=== PATIENT | female | born 1970 | race Caucasian/White ===

== ENCOUNTER 2017-08-06 20:18 | Emergency (ER) | payer MEDICAID ==
[2017-08-06 20:18] VITALS: BMI 31.6
[2017-08-06 20:41] VITALS: BP 100/74; PULSE 96; RESP 20; TEMP 98.3; O2SAT 94
--- NOTE | 2017-08-06 21:13 | ED PDOC ---
Arrival/HPI - General Historian: Patient - History of Present Illness Time/Duration: < week Symptom Onset: Sudden Symptom Course: Intermittent Quality: Fullness Severity Level: 4 Activities at Onset: Rest Context: Home <JUDI MILLER - Last Filed: 08/06/17 23:06> <Rhea Betancur - Last Filed: 08/06/17 23:18> - General Chief Complaint: Shortness Of Breath Time Seen by Provider: 08/06/17 20:19 - History of Present Illness Narrative History of Present Illness (Text): 08/06/17 21:04 46yo F PMH DM2, asthma, anxiety, iron-deficient anemia who presents with shortness of breath and a runny nose x3 days, that she states she gets often when she's sick with a common cold. The sob is not associated with exertion and states it gets better with the use of her nebulizer and motrin at home. Pt also complaining of fevers, but denies cp, palpitations, cough, LE swelling, n/v/d. Pt also denies recent travel or sick contacts at home. pt uses CPAP to sleep at night. pt states she was at [facility] last for "stroke" symptoms, and is seeing Dr. Seb Rios (neurology). Pt also seeing Dr. Yoseph Devries ( cardiology) for a hx of cardiac treatment in [place] (pt was in ICU due to syncope ); pt underwent stress test but states she needs a cath. PMD: Dr. Jocy Knowles. (JUDI MILLER) Past Medical History - Provider Review Nursing Documentation Reviewed: Yes - Past History Past History: Non-Contributing - Infectious Disease Hx of Infectious Diseases: None - Cardiac Hx Cardiac Disorders: Yes Hx Hypertension: Yes - Pulmonary Hx Asthma: Yes - Neurological Hx Dizziness: Yes - HEENT Hx HEENT Disorder: No - Renal Hx Renal Disorder: No - Endocrine/Metabolic Hx Diabetes Mellitus Type 2: Yes - Hematological/Oncological Hx Blood Disorders: No - Integumentary Hx Dermatological Disorder: No - Musculoskeletal/Rheumatological Hx Falls: No - Gastrointestinal Hx Gastrointestinal Disorders: No - Genitourinary/Gynecological Hx Genitourinary Disorders: No - Psychiatric Hx Psychophysiologic Disorder: No Hx Substance Use: No - Surgical History Hx Cholecystectomy: Yes - Anesthesia Hx Anesthesia: Yes Hx Anesthesia Reactions: No Hx Malignant Hyperthermia: No <JUDI MILLER - Last Filed: 08/06/17 23:06> Family/Social History - Physician Review Nursing Documentation Reviewed: Yes Family/Social History: No Known Family HX Smoking Status: Never Smoked Hx Alcohol Use: No Hx Substance Use: No <JUDI MILLER - Last Filed: 08/06/17 23:06> Allergies/Home Meds <JUDI MILLER - Last Filed: 08/06/17 23:06> <Rhea Betancur - Last Filed: 08/06/17 23:18> Allergies/Adverse Reactions: Allergies No Known Allergies Allergy (Verified 08/06/17 20:35) Home Medications: Home Meds Medication Instructions Recorded Confirmed Metformin ER [Glucophage XR] 500 mg PO DAILY 12/08/15 08/06/17 Aspirin [Aspirin Chewable] 81 mg PO DAILY 08/06/17 08/06/17 Review of Systems - Physician Review All systems were reviewed & negative as marked: Yes - Review of Systems Constitutional: Fevers. absent: Fatigue Eyes: Normal ENT: Rhinorrhea. absent: Hearing Changes Respiratory: SOB. absent: Cough Cardiovascular: Normal. absent: Chest Pain, Palpitations, Edema, Syncope Gastrointestinal: Normal. absent: Abdominal Pain, Nausea, Vomiting <JUDI MILLER - Last Filed: 08/06/17 23:06> Physical Exam Vital Signs Reviewed: Yes Appearance: Positive for: Well-Appearing Pain Distress: None Mental Status: Positive for: Alert and Oriented X 3 - Systems Exam Head: Present: Atraumatic, Normocephalic Pupils: Present: PERRL Extroacular Muscles: Present: EOMI Conjunctiva: Present: Normal Ears: Present: Normal, NORMAL TM, Normal [place] Mouth: Present: Moist Mucous Membranes. No: Drooling Neck: Present: Normal Range of Motion. No: Lymphadenopathy Respiratory/Chest: Present: Clear to Auscultation, Good Air Exchange. No: Respiratory Distress, Accessory Muscle Use, Wheezes Cardiovascular: Present: Regular Rate and Rhythm, Normal S1, S2. No: Murmurs Abdomen: Present: Normal Bowel Sounds. No: Tenderness, Distention Back: Present: Normal Inspection. No: CVA Tenderness Upper Extremity: Present: Normal Inspection, Normal ROM. No: Edema Lower Extremity: Present: Normal Inspection, Normal ROM. No: Edema, CALF TENDERNESS Neurological: Present: Speech Normal, Motor Func Grossly Intact Skin: Present: Warm, Dry Psychiatric: Present: Alert, Oriented x 3 <JUDI MILLER - Last Filed: 08/06/17 23:06> Vital Signs Temp Pulse Resp BP Pulse Ox 08/06/17 20:37 98.3 F 96 H 20 100/74 94 L Medical Decision Making <JUDI MILLER - Last Filed: 08/06/17 23:06> <Rhea Betancur - Last Filed: 08/06/17 23:18> ED Course and Treatment: 08/06/17 21:30 Impression: 46yo F PMH anxiety, asthma, DM2 and iron-deficiency anemia who presents with SOB and rhinorrhea x3d Plan: - Reassess and disposition - CXR - CBC/CMP - xopenox, albuterol, steroid Progress Notes: - Labs show no leukocytosis, microcytic anemia (JUDI MILLER) Patient Seen With Resident: EKG: NSR @ [address]/T changes c/w previous on 12/08/15; normal intervals ; normal axis. In agreement with resident note which contains more details about the patient. Patient was seen and evaluated with resident. Came up with plan and treatment together. 08/06/17 23:15 Patient with noted history with URI symptoms with nasal congestion and some sob. Diminished BS on exam; CXR unremarkable. EKG is unchanged from previous. Labs are unremarkable. Given afrin nasal spray with Robitussin and nebs and steroids; she reports feeling much better - doubt cardiac etiology; more likely URI with reactive airway - will d/c on steroids and nebs with z-pack and meds for symptomatic relief and f/u pmd. (Rhea Betancur) - Lab Interpretations Lab Results: 08/06/17 21:56 08/06/17 21:55 Lab Results 08/06/17 21:56: WBC 6.1, RBC 4.53, Hgb 9.9 L, Hct 33.0 L, MCV 72.8 L, MCH 21.9 L , MCHC 30.0 L, RDW 15.5 H, Plt Count 237, MPV 8.5, Gran % 44.9 L, Lymph % (Auto ) 45.1 H, [place] % (Auto) 6.9 H, Eos % (Auto) 2.8, Baso % (Auto) 0.3, Gran # 2.74 , Lymph # 2.8, [place] # 0.4, Eos # 0.2, Baso # 0.02 08/06/17 21:55: Sodium 142, Potassium 3.6, Chloride 104, Carbon Dioxide 27, Anion Gap 15, BUN 9, Creatinine 0.6, Est GFR ( Amer) > 60, Est GFR (Non- Af Amer) > 60, Random Glucose 99, Calcium 8.7, Phosphorus 3.5, Magnesium 2.2, Total Bilirubin 0.3, AST 29, ALT 31, Alkaline Phosphatase 106, Lactate Dehydrogenase 471, Total Creatine Kinase 114, Troponin I < 0.01, NT-Pro-B Natriuret Pep < 11.1, Total Protein 7.3, Albumin 4.0, Globulin 3.4, Albumin/ Globulin Ratio 1.2 - RAD Interpretation Radiology Orders: 08/06/17 21:35 CHEST TWO VIEWS (PA/LAT) [RAD] Stat - Medication Orders Current Medication Orders: Discontinued Medications Acetaminophen (Tylenol 325mg Tab) 975 mg PO STAT STA Stop: 08/06/17 21:50 Last Admin: 08/06/17 22:03 Dose: 975 mg Guaifenesin (Robitussin) 400 mg PO ONCE STA Stop: 08/06/17 21:51 Last Admin: 08/06/17 22:03 Dose: 400 mg Ipratropium [place] (Atrovent) 0.5 mg IH STAT STA Stop: 08/06/17 21:51 Last Admin: 08/06/17 22:03 Dose: 0.5 mg Levalbuterol HCl (Xopenex) 1.25 mg IH STAT STA Stop: 08/06/17 21:51 Last Admin: 08/06/17 22:03 Dose: 1.25 mg Methylprednisolone (Solu-Medrol) 125 mg IVP STAT STA Stop: 08/06/17 21:51 Last Admin: 08/06/17 22:03 Dose: 125 mg IVP Administration Document 08/06/17 22:03 [place] (Rec: 08/06/17 22:03 [place] [id number]) Charges for Administration # of IVP Administrations 1 Oxymetazoline HCl (Afrin 0.05%) 0 ml NS STAT STA Stop: 08/06/17 21:50 Last Admin: 08/06/17 22:05 Dose: 2 spg - PA / DIGESTER OPERATOR HELPER / Resident Statement BATSHEVA has reviewed & agrees with the documentation as recorded. BATSHEVA has examined the patient and agrees with the treatment plan. <Rhea Betancur - Last Filed: 08/06/17 23:18> Disposition/Present on Arrival - Present on Arrival Any Indicators Present on Arrival: No History of DVT/PE: No History of Uncontrolled Diabetes: No Urinary Catheter: No History of Decub. Ulcer: No History Surgical Site Infection Following: None - Disposition Have Diagnosis and Disposition been Completed?: Yes Disposition Time: 22:57 Patient Plan: Discharge <JUDI MILLER - Last Filed: 08/06/17 23:06> <Rhea Betancur - Last Filed: 08/06/17 23:18> - Disposition Diagnosis: Upper respiratory disease, Asthma Disposition: HOME/ ROUTINE Patient Problems: Current Active Problems Problem Status Onset Asthma Acute Upper respiratory disease Acute Condition: GOOD Discharge Instructions (ExitCare): Upper Respiratory Infection (ED) Additional Instructions: Take the medications as prescribed. Recommend using Robitussin or mucinex (OTC) . use the afrin nasal spray - 2 sprays/nostril x 2 days only. Return to the emergency department if any new concerning symptoms. Prescriptions: Albuterol HFA [Ventolin HFA 90 mcg/actuation (8 g)] 2 puff IH Q4H #1 inhaler Azithromycin [Zithromax] 2 tab PO DAILY #6 tab predniSONE [Prednisone] 2 tab PO DAILY #10 tab Pseudoephedrine [Sudafed Tab] 2 tab PO Q6H PRN #24 tab PRN Reason: Nasal Congestion Referrals: Jocy Knowles MD [Primary Care Provider] - Follow up with primary Forms: [employer] (Hebrew)
[2017-08-06] MEDS ORDERED: Oxymetazoline 0.05% Nasal Spray (30 ml) NS STA (21:49)
[2017-08-06] MEDS ORDERED: Levalbuterol 1.25 MG/3 ML Inhal Soln UD IH STA (21:50)
[2017-08-06] MEDS ORDERED: guaiFENesin 200 mg/10 ml Syrup UD PO STA (21:50)
[2017-08-06] MEDS ORDERED: Ipratropium 0.02% Inhal Soln (0.5 mg/2.5 ml) UD IH STA (21:50)
[2017-08-06 22:19] LABS: ALB/GLOB RATIO 1.2 (1.1-1.8); ALKALINE PHOSPHATASE 106 U/L (38-126); ALT/SGPT 31 U/L (7-56); AST/SGOT 29 U/L (14-36); BILIRUBIN,TOTAL 0.3 mg/dL (0.2-1.3); BLOOD UREA NITROGEN 9 mg/dL (7-21); CALCIUM 8.7 mg/dL (8.4-10.5); CARBON DIOXIDE 27 mmol/L (21-33); CHLORIDE 104 mmol/L (98-107); GFR AFRICAN-AMERICAN > 60; GLUCOSE,RANDOM 99 mg/dL (70-110); MAGNESIUM 2.2 mg/dL (1.7-2.2); PHOSPHOROUS 3.5 mg/dL (2.5-4.5); POTASSIUM 3.6 mmol/L (3.6-5.0); SODIUM 142 mmol/L (132-148); TOTAL PROTEIN 7.3 g/dL (5.8-8.3)
[2017-08-06 22:20] LABS: BASO # 0.02 K/mm3 (0.0-2.0); BASO % 0.3 % (0.0-3.0); EOS # 0.2 (0.0-0.7); EOS % 2.8 % (1.5-5.0); GRAN # 2.74 (1.4-6.5); GRAN % 44.9 % (50.0-68.0); LYMPH # 2.8 (1.2-3.4); LYMPH % 45.1 % (22.0-35.0); MEAN CELL VOLUME 72.8 fl (80.0-105.0); MEAN CORPUSCULAR HEMOGLOBIN 21.9 pg (25.0-35.0); MEAN PLATELET VOLUME 8.5 fl (7.0-11.0); MONO # 0.4 (0.1-0.6); MONO % 6.9 % (1.0-6.0); RED CELL DISTRIBUTION WIDTH 15.5 % (11.5-14.5); WHITE BLOOD COUNT 6.1 10^3/ul (4.5-11.0)
[2017-08-06 22:31] LABS: TROPONIN I < 0.01 ng/mL
--- NOTE | 2017-08-07 08:47 | RAD ---
HISTORY: sob COMPARISON: 04/03/2016 TECHNIQUE: Chest PA and lateral FINDINGS: LUNGS: Shallow inspiration -limiting evaluation of lung bases. No consolidation. PLEURA: No significant pleural effusion identified. No pneumothorax apparent. CARDIOVASCULAR: Probably top-normal heart size. Central pulmonary vasculature prominent and crowding of vessels with or without minimal pulmonary venous congestion -considerations. OSSEOUS STRUCTURES: No significant abnormalities. VISUALIZED UPPER ABDOMEN: Normal. OTHER FINDINGS: None. IMPRESSION: Limited exam given the shallow inspiration. No gross consolidation. Central pulmonary venous mild congestion and/or crowding of pulmonary vessels.
--- NOTE | 2017-08-07 11:36 | CARD ---
APPROVED REPORT EKG Measurement Heart [id number] <Conclusion> Normal sinus rhythm Moderate voltage criteria for LVH, may be normal variant Borderline ECG
== END 2017-08-06 23:47 | disposition home or self-care (01) ==
LOC: ED 20:18
DX: J45.909 Unspecified asthma, uncomplicated (principal); J06.9 Acute upper respiratory infection, unspecified; I10 Essential (primary) hypertension; E11.9 Type 2 diabetes mellitus without complications; D50.9 Iron deficiency anemia, unspecified
CPT/HCPCS: 71020; 80053; 82550; 83615; 83735; 83880; 84100; 84484; 85025; 93005; 96374; 99283; J2930

== ENCOUNTER 2017-10-15 09:11 | Emergency (ER) | payer MEDICAID ==
[2017-10-15 09:10] VITALS: BMI 31.6
[2017-10-15 09:23] VITALS: RESP 18; TEMP 98.8
[2017-10-15] MEDS ORDERED: Sodium Chloride 0.9% 1,000 ML IV STA (09:23)
[2017-10-15 09:50] LABS: BASO # 0.01 K/mm3 (0.0-2.0); BASO % 0.2 % (0.0-3.0); EOS # 0.1 (0.0-0.7); EOS % 1.2 % (1.5-5.0); GRAN # 2.81 (1.4-6.5); GRAN % 49.8 % (50.0-68.0); HEMATOCRIT 35.7 % (36.0-48.0); LYMPH # 2.4 (1.2-3.4); LYMPH % 42.2 % (22.0-35.0); MEAN CELL VOLUME 72.4 fl (80.0-105.0); MEAN CORPUSCULAR HEMOGLOBIN 21.5 pg (25.0-35.0); MEAN CORPUSCULAR HGB CONC 29.7 g/dl (31.0-37.0); MONO # 0.4 (0.1-0.6); MONO % 6.6 % (1.0-6.0); RED CELL DISTRIBUTION WIDTH 16.4 % (11.5-14.5); WHITE BLOOD COUNT 5.6 10^3/ul (4.5-11.0)
--- NOTE | 2017-10-15 09:50 | ED PDOC ---
Arrival/HPI - General Historian: Patient - General Chief Complaint: Dizziness/Lightheaded Time Seen by Provider: 10/15/17 09:19 - History of Present Illness Narrative History of Present Illness (Text): 10/15/17 09:45 45 yrs old female with hx of HTN , DM, dizziness, anemia, BIBA for evaluation of sudden onset of dizziness today AM associated with nausea. As per family, " she was on phone this AM when suddenly felt room is spinning, nauseous". Otherwise, pt denies headache, visual changes, focal deficits, neck pain, CP, SOB, dyspnea, palpitation, abd. pain, V/D, back pain, UTI sx, denies weakness, sensory or vascular deficits to B/L UEs and LEs. FYI: previous ED visits review. Pt was seen before with same symptoms in 2015. Last CT head, CTA r/o PEw as on 03/2016- normal findings, Carotid Doppler US- 20-39% stenosis proximal ICA. (Rufina Bach) Past Medical History - Provider Review Nursing Documentation Reviewed: Yes - Travel History Have you recently traveled outside [place] w/in the past 3 mons?: No - Past History Past History: Non-Contributing - Infectious Disease Hx of Infectious Diseases: None - Tetanus Immunization Tetanus Immunization: Unknown - Cardiac Hx Cardiac Disorders: Yes Hx Hypertension: Yes - Pulmonary Hx Asthma: Yes - Neurological Hx Dizziness: Yes Hx Vertigo: Yes - HEENT Hx HEENT Disorder: No - Renal Hx Renal Disorder: No - Endocrine/Metabolic Hx Diabetes Mellitus Type 2: Yes - Hematological/Oncological Hx Blood Disorders: No - Integumentary Hx Dermatological Disorder: No - Musculoskeletal/Rheumatological Hx Falls: No - Gastrointestinal Hx Gastrointestinal Disorders: No - Genitourinary/Gynecological Hx Genitourinary Disorders: No - Psychiatric Hx Psychophysiologic Disorder: No Hx Substance Use: No - Surgical History Hx Cholecystectomy: Yes - Anesthesia Hx Anesthesia: Yes Hx Anesthesia Reactions: No Hx Malignant Hyperthermia: No Family/Social History - Physician Review Nursing Documentation Reviewed: Yes Family/Social History: No Known Family HX Smoking Status: Never Smoked Hx Alcohol Use: No Hx Substance Use: No Allergies/Home Meds Allergies/Adverse Reactions: Allergies No Known Allergies Allergy (Verified 10/15/17 09:21) Home Medications: Home Meds Medication Instructions Recorded Confirmed Metformin ER [Glucophage XR] 500 mg PO DAILY 12/08/15 10/15/17 Aspirin [Aspirin Chewable] 81 mg PO DAILY 08/06/17 10/15/17 Alendronate [Fosamax] 0 mg PO DAILY 10/15/17 10/15/17 Fluconazole [Diflucan] 0 mg PO DAILY 10/15/17 10/15/17 Omeprazole [Omeprazole] 40 mg PO DAILY 10/15/17 10/15/17 Review of Systems - Review of Systems Constitutional: Normal Eyes: Normal ENT: Normal Respiratory: Normal Cardiovascular: Normal. absent: Chest Pain, Palpitations, Edema, Calf Pain Gastrointestinal: Normal Genitourinary Female: Normal Musculoskeletal: Normal Skin: Normal Neurological: Dizziness. absent: Headache, Facial Droop Endocrine: Normal Hemo/Lymphatic: Normal Psychiatric: Normal Physical Exam Vital Signs Reviewed: Yes Temperature: Afebrile Blood Pressure: Normal Pulse: Regular Respiratory Rate: Normal Appearance: Positive for: Well-Appearing, Non-Toxic, Comfortable Pain Distress: None Mental Status: Positive for: Alert and Oriented X 3 Finger Stick Blood Glucose: 115 - Systems Exam Head: Present: Atraumatic, Normocephalic Pupils: Present: PERRL Extroacular Muscles: Present: EOMI Conjunctiva: Present: Normal Mouth: Present: Moist Mucous Membranes, Normal Lips. No: Drooling Pharnyx: No: ERYTHEMA Nose (Internal): Present: Normal Inspection Neck: Present: Trachea Midline. No: JVD, Bruit (B/L) Respiratory/Chest: Present: Clear to Auscultation, Good Air Exchange. No: Respiratory Distress, Accessory Muscle Use, Wheezes, Decreased Breath Sounds Cardiovascular: Present: Regular Rate and Rhythm, Normal S1, S2. No: Murmurs Abdomen: Present: Normal Bowel Sounds. No: Tenderness, Distention, Peritoneal Signs, Rebound, Guarding Back: No: CVA Tenderness Upper Extremity: Present: Normal ROM, NORMAL PULSES. No: Edema, Deformity Lower Extremity: Present: NORMAL PULSES, Normal ROM, Neurovascularly Intact. No : Edema, CALF TENDERNESS, Tenderness, Deformity Neurological: Present: GCS=15, Speech Normal, Motor Func Grossly Intact, Normal Sensory Function, Norm Deep Tendon Reflexes Skin: Present: Warm, Dry, Normal Color. No: Rashes Psychiatric: Present: Alert, Oriented x 3, Normal Insight, Normal Concentration Vital Signs Temp Pulse Resp BP Pulse Ox 10/15/17 13:01 79 18 106/67 100 10/15/17 09:22 98.8 F 86 18 113/73 96 Medical Decision Making - Lab Interpretations Interpretation: No sign. chg./baseline - EKG Interpretation Interpreted by ED Physician: Yes Comparison: Similar to previous EKG ED Course and Treatment: 10/15/17 At 11:05, pt reports mild improvement in dizziness and nausea now. Pt appears improved, smiling now. Afebrile, hemodynamicaly stable. non-toxic. Neurologicaly intact. Given pt's hx, carotid US and CT head ordered now. At 12:17, pt reports moderate improvement in symptoms. Pt was asked to ambulate in ED, performed without sign of dizziness or vertigo. Afebrile, hemodynamicaly stable. Neurologically intact. CT head- normal study. Carotid Duppler US- unchanged since 03/2016 At 13:03, Pt was OBS in ED for 4 hours. On re-eval, pt is awake, alert, not in any apparent distress. Fever improved, hemodynamicaly stable. PusleOx 97% RA ENT:no acute findings. Uvula midline, no edema. Neck: SUpple, (-) JVD, (-) carotid bruits B/L. Lungs: CTA B/L, BS equal B/L. CVS: (+)S1S2, reg. ABd: benign. Neurologically intact. Case discussed with ED attending, results review. Pt was evaluated by and discharge with outpt f/u recommend at this time. results review and discussed with patient and family, advised on course of ds. ref. to f/u with PMD, Neurology in 2-3 days for re-eval. return to ED if any worsening or new changes. (Rufina Bach) Pt with hx of recurrent vertigo. Rightward fatigable nystagmus. No neuro deficits. No abnormal cerebellar findings. Steady gait. pt feels much better after meclizine. rec f/u w neuro and disc rtr. (Myles Sosa) - Lab Interpretations Lab Results: 10/15/17 09:40 10/15/17 09:40 Lab Results 10/15/17 09:55: Urine Color Yellow, Urine Appearance Clear, Urine pH 6.5, Ur Specific [place] 1.025, Urine Protein Negative, Urine Glucose (UA) Negative, Urine Ketones Negative, Urine Blood Negative, Urine Nitrate Negative, Urine Bilirubin Negative, Urine Urobilinogen 0.2, Ur Leukocyte Esterase Negative 10/15/17 09:40: Sodium 140, Potassium 3.7, Chloride 108 H, Carbon Dioxide 23, Anion Gap 14, BUN 10, Creatinine 0.5 L, Est GFR ( Amer) > 60, Est GFR ( Non-Af Amer) > 60, Random Glucose 113 H, Calcium 8.7, Total Bilirubin 0.3, AST 30, ALT 25, Alkaline Phosphatase 113, Lactate Dehydrogenase 423, Total Creatine Kinase 99, Troponin I < 0.01, Total Protein 7.4, Albumin 3.9, Globulin 3.5, Albumin/Globulin Ratio 1.1 10/15/17 09:40: PT 11.9, INR 1.08, APTT 27.7 10/15/17 09:40: WBC 5.6, RBC 4.93, Hgb 10.6 L, Hct 35.7 L, MCV 72.4 L, MCH 21.5 L, MCHC 29.7 L, RDW 16.4 H, Plt Count 264, MPV 9.0, Gran % 49.8 L, Lymph % (Auto ) 42.2 H, [place] % (Auto) 6.6 H, Eos % (Auto) 1.2 L, Baso % (Auto) 0.2, Gran # 2.81, Lymph # 2.4, [place] # 0.4, Eos # 0.1, Baso # 0.01 10/15/17 09:18: POC Glucose (mg/dL) 115 H - RAD Interpretation Narrative RAD Interpretations (Text): 10/15/17 12:29 PROCEDURE: CT HEAD WITHOUT CONTRAST. HISTORY: dizziness COMPARISON: 04/03/2016 TECHNIQUE: Axial computed tomography images were obtained through the head/brain without intravenous contrast. Radiation dose: Total exam DLP = 726 mGy-cm. This CT exam was performed using one or more of the following dose reduction techniques: Automated exposure control, adjustment of the mA and/or kV according to patient size, and/or use of iterative reconstruction technique. FINDINGS: HEMORRHAGE: No intracranial hemorrhage. BRAIN: No mass effect or edema. No atrophy or chronic microvascular ischemic changes. VENTRICLES: Unremarkable. No hydrocephalus. CALVARIUM: Unremarkable. PARANASAL SINUSES: Unremarkable as visualized. No significant inflammatory changes. MASTOID AIR CELLS: Unremarkable as visualized. No inflammatory changes. OTHER FINDINGS: None. IMPRESSION: No acute findings Carotid Duppler results review, appears unchanged from previous 03/2016 (Rufina Bach) Radiology Orders: 10/15/17 09:21 CHEST TWO VIEWS (PA/LAT) [RAD] Stat 10/15/17 11:01 CAROTID & VERTEBRAL DUPLEX [US] Stat 10/15/17 11:02 HEAD W/O CONTRAST [CT] Stat CXR: (-) acute findings, per radiology reading (Rufina Bach) - EKG Interpretation EKG Interpretation (Text): 10/15/17 09:51 SR@80/min, LAD, T wave inversion in III, no acute ST-T changes. Compare to old study- no new acute changes. (Rufina Bach) - Medication Orders Current Medication Orders: Discontinued Medications Sodium Chloride (Sodium Chloride 0.9%) 1,000 mls @ 999 mls/hr IV .Q1H1M STA Stop: 10/15/17 10:23 Last Admin: 10/15/17 10:03 Dose: 999 mls/hr eMAR Start Stop Document 10/15/17 10:03 MR (Rec: 10/15/17 10:03 MR [id number]) Intravenous Solution Start Date 10/15/17 Start Time 10:03 End Date 10/15/17 End time 11:03 Total Infusion Time 60 Meclizine HCl (Antivert) 12.5 mg PO STAT STA Stop: 10/15/17 11:02 Last Admin: 10/15/17 11:47 Dose: 12.5 mg Ondansetron HCl (Zofran Inj) 4 mg IVP STAT STA Stop: 10/15/17 09:24 Last Admin: 10/15/17 10:03 Dose: 4 mg IVP Administration Document 10/15/17 10:03 MR (Rec: 10/15/17 10:03 MR [id number]) Charges for Administration # of IVP Administrations 1 Disposition/Present on Arrival - Present on Arrival Any Indicators Present on Arrival: No History of DVT/PE: No History of Uncontrolled Diabetes: No Urinary Catheter: No History of Decub. Ulcer: No History Surgical Site Infection Following: None - Disposition Have Diagnosis and Disposition been Completed?: Yes Disposition Time: 13:26 Patient Plan: Discharge - Disposition Diagnosis: Dizziness, Vertigo Disposition: HOME/ ROUTINE Condition: STABLE Discharge Instructions (ExitCare): Vertigo (ED) Additional Instructions: ENCOURAGE FLUIDS TAKE MEDICATION NEED FOR DIZZINESS FOLLOW UP WITH PMD, NEUROLOGY IN 2-3 DAYS FOR RE-EVALUATION. RETURN TO ED IF ANY WORSENING OR NEW CHANGES. Prescriptions: Meclizine [Antivert] 12.5 mg PO BID #7 tab Ondansetron ODT [Zofran ODT] 1 odt PO BID PRN #6 odt PRN Reason: Nausea/Vomiting Referrals: Jocy Knowles MD [Primary Care Provider] - Follow up with primary Seb Rios MD [Staff Provider] - Follow up with primary King Rios MD [Staff Provider] - Follow up with primary Forms: [employer] ([place])
[2017-10-15 09:56] LABS: INR 1.08 (0.93-1.08); PARTIAL THROMBOPLASTIN TIME 27.7 Seconds (25.1-36.5)
[2017-10-15 09:57] LABS: ALB/GLOB RATIO 1.1 (1.1-1.8); ALKALINE PHOSPHATASE 113 U/L (38-126); ALT/SGPT 25 U/L (7-56); AST/SGOT 30 U/L (14-36); BILIRUBIN,TOTAL 0.3 mg/dL (0.2-1.3); BLOOD UREA NITROGEN 10 mg/dL (7-21); CALCIUM 8.7 mg/dL (8.4-10.5); CARBON DIOXIDE 23 mmol/L (21-33); CHLORIDE 108 mmol/L (98-107); GFR AFRICAN-AMERICAN > 60; GLUCOSE,RANDOM 113 mg/dL (70-110); POTASSIUM 3.7 mmol/L (3.6-5.0); SODIUM 140 mmol/L (132-148); TOTAL PROTEIN 7.4 g/dL (5.8-8.3)
[2017-10-15 10:00] LABS: PH,URINE 6.5 (4.7-8.0); URINE BILIRUBIN NEGATIVE (NEGATIVE); URINE BLOOD NEGATIVE (NEGATIVE); URINE GLUCOSE (UA) NEGATIVE (NEGATIVE); URINE KETONE NEGATIVE (NEGATIVE); URINE LEUKOCYTE ESTERASE NEGATIVE Leu/uL (NEGATIVE); URINE PROTEIN NEGATIVE mg/dL (<30 mg/dL); URINE UROBILINOGEN 0.2 E.U./dL (<1 E.U./dL)
[2017-10-15 10:02] LABS: URINE APPEARANCE CLEAR (CLEAR); URINE COLOR YELLOW (YELLOW)
[2017-10-15 10:09] LABS: TROPONIN I < 0.01 ng/mL
--- NOTE | 2017-10-15 11:38 | RAD ---
HISTORY: DIZZINESS COMPARISON: No prior. TECHNIQUE: Chest PA and lateral FINDINGS: LUNGS: No active pulmonary disease. PLEURA: No significant pleural effusion identified. No pneumothorax apparent. CARDIOVASCULAR: Normal. OSSEOUS STRUCTURES: No significant abnormalities. VISUALIZED UPPER ABDOMEN: Normal. OTHER FINDINGS: None. IMPRESSION: No active disease.
--- NOTE | 2017-10-15 12:20 | CT ---
PROCEDURE: CT HEAD WITHOUT CONTRAST. HISTORY: dizziness COMPARISON: 04/03/2016 TECHNIQUE: Axial computed tomography images were obtained through the head/brain without intravenous contrast. Radiation dose: Total exam DLP = 726 mGy-cm. This CT exam was performed using one or more of the following dose reduction techniques: Automated exposure control, adjustment of the mA and/or kV according to patient size, and/or use of iterative reconstruction technique. FINDINGS: HEMORRHAGE: No intracranial hemorrhage. BRAIN: No mass effect or edema. No atrophy or chronic microvascular ischemic changes. VENTRICLES: Unremarkable. No hydrocephalus. CALVARIUM: Unremarkable. PARANASAL SINUSES: Unremarkable as visualized. No significant inflammatory changes. MASTOID AIR CELLS: Unremarkable as visualized. No inflammatory changes. OTHER FINDINGS: None. IMPRESSION: No acute findings
--- NOTE | 2017-10-15 12:33 | CARD ---
APPROVED REPORT EKG Measurement Heart [id number] VT 160P34 [id number] <Conclusion> Normal sinus rhythm Minimal voltage criteria for LVH, may be normal variant Borderline ECG
[2017-10-15 13:01] VITALS: BP 106/67; PULSE 79; O2SAT 100
--- NOTE | 2017-10-15 16:21 | US ---
PROCEDURE: Bilateral carotid artery duplex ultrasound HISTORY: Carotid stenosis dizziness PHYSICIAN(S): Jose Juan Burns MD. TECHNIQUE: Duplex sonography and color-flow Doppler were used to evaluate the carotid bifurcations and limited segments of the vertebral arteries bilaterally. FINDINGS: There is mild smooth intimal -medial thickening noted at the carotid bifurcations bilaterally. The peak systolic velocity in the proximal right internal carotid artery is 89 cm/sec. This corresponds to a 0-19 percent proximal right ICA stenosis. Normal systolic velocities are noted in the proximal right external carotid artery. There is antegrade flow in the right vertebral artery. The peak systolic velocity in the proximal left internal carotid artery is 131 cm/sec. However, the ic/ cc ratio is not elevated. This corresponds to a 0-19 percent proximal left ICA stenosis. Normal systolic velocities are noted in the proximal left external carotid artery. There is antegrade flow in the left vertebral artery. IMPRESSION: 1. Bilateral 0-19 percent proximal ICA stenoses. 2. Antegrade flow in both vertebral arteries.
== END 2017-10-15 13:50 | disposition home or self-care (01) ==
LOC: ED 09:11
DX: R42 Dizziness and giddiness (principal); I10 Essential (primary) hypertension; E11.9 Type 2 diabetes mellitus without complications; D64.9 Anemia, unspecified
CPT/HCPCS: 70450; 71020; 80053; 81003; 82550; 82948; 83615; 84484; 85025; 85610; 85730; 93005; 93880; 96361; 96374; 99285; J2405; J7040

== ENCOUNTER 2019-01-28 12:30 | Outpatient (CLI) | payer MEDICAID | END 2019-01-28 12:31 | disposition home or self-care (01) | LOC: RAD 12:30 | DX: R07.9 Chest pain, unspecified (principal); R06.02 Shortness of breath ==

== ENCOUNTER 2019-02-02 08:27 | Outpatient (CLI) | payer MEDICAID | END 2019-02-02 08:28 | disposition home or self-care (01) | LOC: CARDIO 08:27 | DX: R06.02 Shortness of breath (principal) ==

== ENCOUNTER 2019-02-26 07:02 | Day surgery (SDC) | payer MEDICAID ==
[2019-02-16 13:25] VITALS: BMI 29.3
[2019-02-26 07:50] LABS: BASO # 0.01 K/mm3 (0.0-2.0); BASO % 0.3 % (0.0-3.0); EOS # 0.1 (0.0-0.7); EOS % 1.4 % (1.5-5.0); HEMOGLOBIN 13.4 g/dL (12.0-16.0); LYMPH # 1.8 (1.2-3.4); MEAN CORPUSCULAR HEMOGLOBIN 27.6 pg (25.0-35.0); MEAN CORPUSCULAR HGB CONC 32.1 g/dl (31.0-37.0); MEAN PLATELET VOLUME 9.4 fl (7.0-11.0); MONO # 0.3 (0.1-0.6); MONO % 7.1 % (1.0-6.0); RBC 4.86 10^6/uL (3.5-6.1); WHITE BLOOD COUNT 3.5 10^3/uL (4.5-11.0)
[2019-02-26 07:58] VITALS: RESP 18
[2019-02-26 08:03] LABS: INR 1.02; PROTHROMBIN TIME 11.5 SECONDS (9.4-12.5)
[2019-02-26 08:05] LABS: BLOOD UREA NITROGEN 6 mg/dL (7-21); CALCIUM 9.1 mg/dL (8.4-10.5); GFR NON-AFRICAN AMERICAN > 60; HDL CHOLESTEROL 38 mg/dL (29-60)
[2019-02-26 08:16] LABS: LDL CHOLESTEROL 95 mg/dL (0-129)
--- NOTE | 2019-02-26 09:24 | CARD ---
APPROVED REPORT Date of service: 02/26/2019 EKG Measurement Heart [id number] NC 162P59 [id number] <Conclusion> Normal sinus rhythm Normal ECG
[2019-02-26] MEDS ORDERED: Lidocaine PF 2% (5 ml) Inj (For Cardiac Arrhy) ONE (11:40)
[2019-02-26] MEDS ORDERED: Iodixanol 320 MG/ML 100 ML BOTTLE IV ONE (11:40)
[2019-02-26] MEDS ORDERED: Iohexol 350mgl/ml 50 ML ONE (11:40)
[2019-02-26] MEDS ORDERED: Iodixanol 320 MG/ML 200 ML BOTTLE IV ONE (11:40)
[2019-02-26] MEDS ORDERED: Verapamil 2 ML ONE (11:41)
[2019-02-26] MEDS ORDERED: Nitroglycerin 50mg in D5W 50 MG/250 ML BOTTLE IV ONE (11:42)
[2019-02-26] MEDS ORDERED: Midazolam 2 MG/2 ML VIAL ONE (12:30)
[2019-02-26] MEDS ORDERED: Morphine 2 mg/ml ISec ONE (12:50)
--- NOTE | 2019-02-26 13:07 | HP ---
DATE OF EXAM: 02/25/2019 REASON FOR ADMISSION: Left heart catheterization with possible angioplasty, unstable angina, history of coronary artery disease. BRIEF CLINICAL HISTORY: This is a 48-year-old female with past medical history significant for hyperlipidemia, coronary artery disease status post cardiac catheterization at [facility] dated 04/07/2018, found to be with 90% circumflex. Medical treatment recommended. Patient was on Ranexa and Imdur, partially relieved. Patient is having chest pain, history of obstructive sleep apnea uses a CPAP, but patient is still complaining of chest pain. Patient underwent a stress test that was abnormal because insurance did not approve a nuclear stress test, so the patient underwent a stress test, walked on treadmill for 7 minutes and 19 seconds, limited because of the chest pain. No acute ST-T wave changes noted. Patient is scheduled today for elective cardiac catheterization for unstable angina, progressively worsening shortness of breath, and dyspnea on exertion with associated tightness in the chest. PAST MEDICAL HISTORY: Significant for coronary artery disease status post cardiac catheterization at [facility] dated 04/07/2018, that shows 90% circumflex not amenable with PCI, medical treatment is recommended. CURRENT MEDICATIONS: Patient is taking ibuprofen 600 mg daily, aspirin 81 mg daily, albuterol inhaler, atorvastatin 40 mg daily, multivitamin, Ranexa 500 mg p.o. twice daily, and Imdur 30 mg daily. REVIEW OF SYSTEMS: As per HPI. ALLERGIES: NO KNOWN DRUG ALLERGY. RECENT CARDIAC WORKUP: Stress test dated 02/02/2019, that is a regular stress test. Patient walked on the treadmill for 7 minutes and 19 seconds, Timothy protocol. Patient developed chest pain, so stress test was stopped. No acute ST-T wave changes noted. Cardiac catheterization or nuclear stress was recommended. PHYSICAL EXAMINATION: GENERAL: Height of the patient 5 feet 4 inches, weight of the patient 171 pounds, and body mass index 33 kg/m2. VITAL SIGNS: Temperature afebrile, heart rate 80, blood pressure 130/80. HEENT: PERRLA. Extraocular muscles intact. NECK: Supple. No carotid bruits. No thyromegaly. CHEST: Clear to auscultation. HEART: S1 and S2 regular. ABDOMEN: Soft. EXTREMITIES: Clubbing and cyanosis negative. IMPRESSION AND PLAN: A 48-year-old female with past medical history significant for coronary artery disease status post cardiac catheterization at [facility] on 04/07/2018, circumflex critical disease not amenable with percutaneous coronary intervention. Medical treatment recommended with the patient having chest pain, recurrent and abnormal stress test, patient is scheduled for elective cardiac catheterization with possible angioplasty. We will load with aspirin and Plavix. Risks, benefits, and alternatives discussed with the patient. Patient agreed. We will proceed with cardiac catheterization. Further recommendations after cardiac catheterization. We will follow with you. Thank you Dr. Jocy Sandoval for providing us the opportunity in taking care of the patient, Caitlyn Rodriguez. Leander Bustillo MD
[2019-02-26] MEDS ORDERED: Bacitracin 500 Units/gm Oint Foilpak UD TOP ONE (13:17)
[2019-02-26] MEDS ORDERED: Sodium Chloride 0.9% 1,000 ML IV SCH (13:30)
[2019-02-26] MEDS ORDERED: Alum-Mag Hydrox-Simethicone Susp (30 mL) PO PRN (13:34)
[2019-02-26 13:42] VITALS: TEMP 98; O2SAT 98
[2019-02-26] MEDS ORDERED: Bacitracin 500 Units/gm Oint Foilpak UD ONE (15:37)
[2019-02-26 15:51] VITALS: BP 111/66; PULSE 81
--- NOTE | 2019-02-26 16:01 | CPOSTOP ---
DATE: 02/26/2019 CARDIOVASCULAR LAB POSTPROCEDURE NOTE DICTATING PHYSICIAN: Leander Bustillo MD DIABETIC EDUCATOR: Michelle lighting technician. TYPE OF ANESTHESIA: Moderate conscious sedation. Total 2 mg of Versed, 100 mg of fentanyl and 2 mg of morphine given periodically, starting 1 mg of Versed and 50 of fentanyl. PRE-PROCEDURE DIAGNOSIS: Unstable angina, abnormal stress test, history of circumflex disease by cath a year ago at [facility]. PROCEDURE PERFORMED: Left heart catheterization. FINDINGS: Normal coronaries. FINAL DIAGNOSIS: Normal coronaries. Preserved left ventricular function. POST PROCEDURE CONDITION: Stable. VASCULAR ACCESS SITE: Left radial. CLOSURE DEVICE: TR Band. RADIATION DOSE: 4654.0 milligray unit. TOTAL CUMULATIVE DOSE: 699 milligray unit. FLUORO TIME: 2.5 minutes. Leander Bustillo MD
--- NOTE | 2019-02-26 17:49 | CARD ---
APPROVED REPORT Date of service: 02/26/2019 Procedure(s) performed: Left Heart Catheterization HISTORY The patient is a 48 year-old female with a history of : peripheral vascular disease, previous diagnostic cath, dyslipidemia , Pt [place] [facility] [place] and reported distal CX 90% with recommendation of Medical treatment, who was getting increasing angina and regular stress test was Positive .. INDICATION The indication(s) include : positive stress test, unstable angina , chest pain. CASE TECHNIQUE The patient was brought electively to the Cardiac Catheterization Laboratory in a fasting state and was prepped and draped in a sterile manner. The left wrist was infiltrated with 2% Lidocaine subcutaneous anesthesia. A 6FR GLIDESHEATH ACCESS KIT sheath was inserted into the left radial artery without difficulty. Coronary angiography was performed using coronary diagnostic catheters. The left coronary system was accessed and visualized with a Diagnostic,5F JL 4 CATH DXT 100 CM catheter. The right coronary system was accessed and visualized with a Diagnostic ,5F JR 4 CATH DXT 100 CM catheter. The left ventricle was accessed and visualized with a 5F PIGTAIL 145 CATH DXT 110 CM catheter. Left ventricular/Aortic Valve gradient assessed on pullback. Left ventriculogram was performed in [place] projection. Closure device was deployed with a Fr TR Band (Regular) without any complications. The patient tolerated the procedure well and there were no complications associated with the procedure. Vessel Analysis The patient's coronary anatomy is right dominant. The left main coronary artery is a medium size vessel without significant stenosis. The left main bifurcates to the left anterior descending and circumflex. The left anterior descending artery is a medium size vessel with intimal irregularities. The first diagonal branch is a small size vessel without significant stenosis. The second diagonal branch is a medium size vessel with intimal irregularities. The circumflex artery is a medium size vessel with intimal irregularities. The first obtuse marginal branch is a medium size vessel with intimal irregularities. The right coronary artery is a large size vessel with intimal irregularities. The right posterior descending artery is a medium size vessel with intimal irregularities. The right posterolateral branch is a medium size vessel with intimal irregularities. Left Ventricle The left ventricle is normal in size with Normal contractility. There was no cardiomyopathy. The left ventricular ejection fraction is estimated to be 55-60%. The left ventricular end diastolic pressure is 6-8 mmHg. There was no gradient across the aortic valve upon pullback. Conclusion Normal coronaries Preserved LVFX. EF-55-60%, EDP_6-8 mmof hg. Recommendations Aggressive Medical Therapy Weight Loss Reduction Program W/u For non Ischemic Chest pain, May consider GI W/u CC; Dr. Jocy Knowles MD
== END 2019-02-26 16:00 | disposition home or self-care (01) ==
LOC: CATH 07:02
PROVIDERS: ATTEND Internal Medicine Cardiovascular Disease
DX: I25.110 Atherosclerotic heart disease of native coronary artery with unstable angina pectoris (principal); E78.5 Hyperlipidemia, unspecified; I73.9 Peripheral vascular disease, unspecified; G47.33 Obstructive sleep apnea (adult) (pediatric)
CPT/HCPCS: 36415; 80048; 80061; 84703; 85025; 85610; 85730; 86850; 86900; 93005; 93458; 99152; C1769; J1644 ×2; J2250; J2270; J3010; J7030; Q9966